=== PATIENT | male | born 1970 | race Caucasian/White ===

== ENCOUNTER 2020-12-28 09:10 | Outpatient (CLI) | payer MEDICAID ==
--- NOTE | 2020-12-28 09:59 | Consultation ---
DATE OF CONSULTATION: 12/28/2020 CHIEF COMPLAINT: Referral for screening colonoscopy. PAST MEDICAL HISTORY: 1. Hypercholesteremia. 2. Seizure disorder. 3. Brain AVM. 4. Shingles. PAST SURGICAL HISTORY: 1. Bilateral knee surgery. 2. Shoulder surgery. MEDICATIONS: Keppra and Lipitor. ALLERGIES: No known drug allergies. FAMILY HISTORY: Father had colon cancer. Mother had pancreatic cancer. SOCIAL HISTORY: The patient drinks about 5 to 7 drinks per the week and smokes cigarettes. Denies any IV drug abuse. REVIEW OF SYSTEMS: Negative. PHYSICAL EXAMINATION: VITAL SIGNS: Temperature 97.8, blood pressure 120/83, pulse 86, respirations 20. HEENT: Normocephalic and atraumatic. Sclerae anicteric. NECK: Supple. No evidence of obvious lymphadenopathy. CARDIOVASCULAR: Regular rate and rhythm. Plus S1, S2. LUNGS: Clear to auscultation bilaterally. ABDOMEN: Positive bowel sounds. Soft and nontender. No rebound. No guarding. No peritoneal sign. EXTREMITIES: No cyanosis, no clubbing, no edema. ASSESSMENT AND PLAN: This is a 50-year-old male was referred for screening colonoscopy. The patient was given instruction for colonoscopy. Risks and benefits of procedure was explained to him. We will schedule him as soon as authorization is obtained. Delmer Kaur M.D. DR: Seven JOB#: [id number] CC:
[2020-12-28 14:20] VITALS: BP 120/63
== END 2020-12-28 11:10 | disposition home or self-care (01) ==
LOC: PAN 09:10
DX: Z01.818 Encounter for other preprocedural examination (principal); E78.00 Pure hypercholesterolemia, unspecified; G40.909 Epilepsy, unspecified, not intractable, without status epilepticus; Z79.899 Other long term (current) drug therapy; Z80.0 Family history of malignant neoplasm of digestive organs; Z80.8 Family history of malignant neoplasm of other organs or systems; F17.210 Nicotine dependence, cigarettes, uncomplicated
CPT/HCPCS: 99203